=== PATIENT | male | born 1965 | race Caucasian/White ===

== ENCOUNTER 2016-12-15 12:18 | Emergency (ER) | payer OTHER ==
[~2016-12-15] VITALS: Ht 167.6 cm; Wt 79.4 kg
--- NOTE | 2016-12-15 16:30 | ED HAND/WRIST INJURY COMPLAINT ---
History of Present Illness General Chief Complaint: Laceration Procedure Stated Complaint: "GLASS DOOR FELL ON ME"LAC TO R HAND Source: patient Exam Limitations: no limitations Vital Signs & Intake/Output Vital Signs & Intake/Output Vital Signs Date Time Temp Pulse Resp B/P B/P Pulse O2 O2 Flow FiO2 Mean Ox Delivery Rate 12/15 1659 98.3 67 15 142/88 100 Room Air 12/15 1649 99 Room Air 12/15 1242 97.3 66 16 147/92 94 Room Air Allergies Coded Allergies: Penicillins (RASH 12/15/16) oxycodone (NAUSEA 12/15/16) Reconcile Medications Cephalexin (Keflex) 500 MG CAPSULE 1 CAP PO TID PROPHYLAXIS Multivitamin (Multi-Day Vitamins) 1 EACH TABLET 1 TAB PO DAILY SUPPLEMENT ( Reported) Triage Note: PT STATES HE WAS TAKING DOWN SHOWER DOORS AND THE DOOR TWISTED AND BROKE AND CUT HIS RIGHT HAND. Triage Nurses Notes Reviewed? yes Occurred: just prior to arrival Timing: no prior history Injury Environment: home Severity: moderate Severity Numbers: 7 Pain/Injury Location: Right: Hand. Context: laceration Method of Injury: laceration Modifying Factors: Improves With: immobilization. Worsens With: movement. HPI: Patient is a 51-year-old male presenting to the emergency department with chief complaint of laceration to the dorsum of the right hand that happened just prior to arrival. Patient reports that he was moving a shower glass door and it broke and shattered and he then received a laceration to his right hand. Tetanus up- to-date, last tetanus immunization was in 2012. Denies numbness or tingling. No other injuries. Denies any nausea vomiting fevers or chills chest pain or shortness of breath. This happened at 11 AM this morning. Past History Travel History Traveled to [place] past 21 day No Medical History Any Pertinent Medical History? see below for history Respiratory: asthma Surgical History Surgical History: non-contributory Psychosocial History What is your primary language Indonesian Tobacco Use: Never used ETOH Use: denies use Illicit Drug Use: denies illicit drug use Family History Hx Contributory? No Review of Systems Review of Systems Constitutional: Reports: no symptoms. Comments Review of systems: See HPI, All other systems negative. Constitutional, no chills fever or weight loss HEENT: No visual changes no sore throat no congestion Cardiovascular: No chest pain Skin, no jaundice no rashes Respiratory: No dyspnea cough sputum or hemoptysis GI: No nausea no vomiting Muscle skeletal: no back pain, no neck pain, Neurologic: No numbness Psych: No stress anxiety or depression,. Heme/endocrine: No bruising no bleeding no polyuria or polydipsia Immunology: No splenectomy or history of AIDS Physical Exam Physical Exam General Appearance: well developed/nourished, no apparent distress, alert, awake , anxious, comfortable Hand Left: normal inspection, normal range of motion Hand Right: lacerations Comments: Well-developed well-nourished person in no acute distress HEENT: Pupils equally round and reactive to light and accommodation. Nose is atraumatic. Neck: Normal inspection Back: Nontender Cardiovascular: normal JVP Respiratory: No respiratory distress. Extremity: Mildly tender to palpation over the right middle metacarpal with some bruising appreciated in this area. Full range of motion of all digits without difficulty. ABLE TO FULLY EXTEND AND FLEX ALL DIGITS ON THE RIGHT HAND. Radial pulses are 2+ bilaterally. Capillary refill is intact in upper extremities. Neuro: Alert oriented x3, motor sensory normal Skin: FLAP LIKE LACERATION, well approximating laceration over the right third metacarpal, no foreign bodies appreciated. THE TENDON IS EXPOSED, LIKELY EXTENSOR DIGITORUM TENDON, UNABLE TO IDENTIFY END POINT OF THE TENDON. Psych: Mood and affect is normal, memory and judgment is normal. Progress Differential Diagnosis: ABRASION, CONTUSION, LACERATION,FINGER FX Plan of Care: Area was irrigated extensively. No foreign bodies in the area of the laceration. Sutures placed. Patient will follow up with PCP. Splint given for as needed use. Diagnostic Imaging: Viewed by Me: Radiology Read. Discussed w/RAD: Radiology Read. Radiology Impression: PATIENT: JUAN CRANE PRESENT AGE: 51 PATIENT ACCOUNT NO: [id number] : 65 LOCATION: [facility] ORDERING PHYSICIAN: MAGNUS JIMENEZ SERVICE DATE: 12/15/16 EXAM TYPE: RAD - XRY-HAND, RIGHT EXAMINATION: XR HAND, RIGHT CLINICAL INFORMATION: Evaluate for foreign body COMPARISON: None TECHNIQUE: AP, lateral, and oblique views of the right hand. FINDINGS: Normal bony dilatation. No evidence of acute fracture or dislocation. Soft tissue swelling noted along the dorsal aspect of the hand. Although there is no gross evidence of a radiodense foreign body, tiny hyperdensity noted in the region of the soft tissue swelling. Clinical correlation is recommended. IMPRESSION: No acute osseous abnormality. Soft tissue swelling distal dorsal aspect of the hand. Nonspecific tiny soft tissue hyperdensity noted within the region of soft tissue swelling. Correlate clinically with the site of injury. Comments: Dr. Meyers was paGED, TENDON EXPOSED. Departure Departure Time of Disposition: 1754 Disposition: HOME OR SELF CARE Condition: Stable Clinical Impression Primary Impression: Laceration Secondary Impressions: Partial tear of tendon Referrals: MARIAN LEA,PEYMAN Kim (PCP/Family) RADHA LEA,ENDY Additional Instructions: Follow-up with Dr. Meyers, call his [place] office at 9:30 AM tomorrow morning. Then a phone number is [phone]. They will time you attempt to come in tomorrow. Take antibiotics as prescribed. Return for worsening symptoms or concerns. Departure Forms: Customer Survey General Discharge Information Prescriptions: Current Visit Scripts Cephalexin (Keflex) 1 CAP PO TID #30 CAP Procedures Splinting Location: RIGHT HAND Manual Alignment Performed: No Hand-Made Type: orthoglass Splint: wrist Splint Applied By: splint applied by me Pre-Proc Neuro Vasc Exam: normal Post-Proc Neuro Vasc Exam: normal Progress: TOLERTAED PROCEDURE WELL Laceration/Wound Repair Laceration/Wound Repair: Wound Location: upper extremity Wound's Depth, Shape: flap, subcutaneous Wound Length (cm): 3 Wound Explored: clean, no foreign body removed, irrigated extensively Irrigated w/ Saline (ccs): 2000 Betadine Prep? Yes Anesthesia: 1% lidocaine Volume Anesthetic (ccs): 4 Wound Debrided: minimal Wound Repaired With: sutures Suture Size/Type: 4:0, nylon Number of Sutures: 5 Layer Closure? No Tetanus Status: up to date Progress: TOERLATED PROCEDURE WELL
[2016-12-15] MEDS ORDERED: MULTI-DAY VITA1 EACH PO (16:43)
--- NOTE | 2016-12-15 17:03 | RADIOLOGY REPORT ---
EXAMINATION: XR HAND, RIGHT CLINICAL INFORMATION: Evaluate for foreign body COMPARISON: None TECHNIQUE: AP, lateral, and oblique views of the right hand. FINDINGS: Normal bony dilatation. No evidence of acute fracture or dislocation. Soft tissue swelling noted along the dorsal aspect of the hand. Although there is no gross evidence of a radiodense foreign body, tiny hyperdensity noted in the region of the soft tissue swelling. Clinical correlation is recommended. IMPRESSION: No acute osseous abnormality. Soft tissue swelling distal dorsal aspect of the hand. Nonspecific tiny soft tissue hyperdensity noted within the region of soft tissue swelling. Correlate clinically with the site of injury.
[2016-12-15] MEDS ORDERED: KEFLEX500 M1 PO (17:57)
[2016-12-15 18:45] VITALS: BP 124/74
[2016-12-28] MEDS ORDERED: PROAIR HFA8.5 GM INH (14:00)
== END 2016-12-15 18:46 ==
LOC: ERH 12:18
DX: S61.411A Laceration without foreign body of right hand, initial encounter (principal); S66.921A Laceration of unspecified muscle, fascia and tendon at wrist and hand level, right hand, initial encounter; W25.XXXA Contact with sharp glass, initial encounter; Y93.89 Activity, other specified; Y92.9 Unspecified place or not applicable
CPT/HCPCS: 73130-RT

== ENCOUNTER → 2016-12-30 | Day surgery (SDC) | payer OTHER ==
[~2016-12-30] VITALS: Ht 167.6 cm; Wt 79.4 kg
[~2016-12-30] MED LIST: KEFLEX500 M1 PO; MULTI-DAY VITA1 EACH PO; PROAIR HFA8.5 GM INH
--- NOTE | 2016-12-30 20:21 | Operative Report ---
Operative/Inv Procedure Report Surgery Date: 12/30/16 Name of Procedure: Repair of extensor digitorum communis tendon of the right long finger Pre-Operative Diagnosis: Right long finger extensor tendon laceration Post-Operative Diagnosis: Right long finger extensor tendon laceration Estimated Blood Loss: scant Surgeon/Paint Supervisor: ENDY GARCIA MD Anesthesia: general endotracheal tube Monitors: NA IV Fluids: 1.4 L Implants: NA Urine Output: NA Drains: NA Specimens: NA Microbiology: NA Tourniquet: 60 minutes Complications: None Condition: Stable Operative Indication: 51 yo male s/p laceration to the dorsum of the right long finger two weeks ago with inability to extend digit. Operative/Procedure Note Note: The procedure, risk, benefits, and alternative discussed with patient. The risks discussed but not limited to included bleeding, infection, stiffness, pain, scarring, tendon rupture, and reoperation. Knowing these risk the patient agreed to the procedure. The patient was taken to the operating room and placed in supine position. SCDs placed on the lower extremity. Tourniquet applied. Antibiotics given. General anesthesia administered. The right upper extremity was prepped and draped in sterile fashion. Tourniquet insufflated to 250mm/Hg. The previous laceration on the dorsum of the hand was exposed. The extensor tendon was identified. There appeared to be a sagittal laceration in the extensor tendon at the MCP joint. The tendon was freed from surronding scar tissue. The tendon was then repaired with a 4-0 Ethibond in an interrupted [id number] suture. Upon completion, dynamic motion did not demonstrated a separation of the repair.The wound was irrigated and closed with 4-0 nylon interrupted vertical mattress sutures. 10 cc of 0.25% Marcaine injected into wound. Bacitracin, Telfa, and volar splint applied for extension of the digits. Right upper extremity placed in Jerry Pillow. Tourniquet released. Time was 60 minutes. Counts were correct. The patient tolerated the procedure well, was extubated, and was taken to the recovery room in stable condition. Findings: Zone V EDC tendon laceration Discharge Disposition: PACU Additional Comments: NA
== END ==
LOC: STS 03:26
DX: S66.322A Laceration of extensor muscle, fascia and tendon of right middle finger at wrist and hand level, initial encounter (principal); S61.212A Laceration without foreign body of right middle finger without damage to nail, initial encounter; X58.XXXA Exposure to other specified factors, initial encounter; K21.9 Gastro-esophageal reflux disease without esophagitis; J45.909 Unspecified asthma, uncomplicated
CPT/HCPCS: C9399; J0131; J1100; J2250; J2405